=== PATIENT | male | born 2000 | race Caucasian/White ===

== ENCOUNTER 2022-01-03 11:19 | Emergency (ER) | payer OTHER, BC ==
[~2022-01-03] VITALS: Ht 185.4 cm; Wt 72.5 kg
[2022-01-03] MEDS: fentaNYL INJ 100 MCG/2 ML AMP ONE (11:37)
[2022-01-03 11:43] LABS: HEMATOCRIT 40 % (40-54); MEAN CORPUSCULAR HEMOGLOBIN 32 pg (25-34); MEAN CORPUSCULAR HGB CONC 35 g/dL (32-36); MEAN CORPUSCULAR VOLUME 91 fL (80-99); MEAN PLATELET VOLUME 9.8 fL (9.0-12.2); PLATELET COUNT 319 10^3/uL (130-400)
[2022-01-03] MEDS ORDERED: fentaNYL INJ 100 MCG/2 ML AMP IVP ONE (11:45)
[2022-01-03] MEDS ORDERED: CATHETER FLUSH 10 ML SYR IV PRN (11:45)
[2022-01-03] MEDS ORDERED: HOLD METFORMIN - RECEIVED CONTRAST 20 ML VIAL IV SCH (11:45)
[2022-01-03] MEDS ORDERED: IOHEXOL 350 MG/ML 100 ML (OMNIPAQUE 350) VIAL IV ONE (11:45)
[2022-01-03] MEDS ORDERED: NS 100 ML (IVPB) BAG IV ONE (11:45)
[2022-01-03] MEDS ORDERED: NS IV 1000 ML 1,000 ML IV SCH (11:45)
[2022-01-03 11:48] LABS: ALBUMIN 4.6 GM/DL (3.2-4.5); CHLORIDE 103 MMOL/L (98-107); POTASSIUM 3.4 MMOL/L (3.6-5.0); SODIUM 140 MMOL/L (135-145)
--- NOTE | 2022-01-03 11:48 | ED Trauma-Vehiclar ---
General Stated Complaint: HEAD INJURY Time Seen by MD: 11:24 Source: patient, EMS Exam Limitations: clinical condition (Concussed) History of Present Illness Date Seen by Provider: Jan 03, 2022 Time Seen by Provider: 11:14 Initial Comments Patient to the ER by EMS from home where he was working cattle on a horse and his horse tripped. It pitched him forward over the horses head and then the horse landed on top of him. He does not remember any of the event. He was unconscious for about 3 to 4 minutes per bystanders. No significant medical history. Does not take any medicines. EMS remarks that he was a little lethargic/somnolent on the way in and difficult historian however it was improving. He is not complaining of pain anywhere except for his right shoulder and his head. EMS found he had a bloody nose and contusions on his face and a few abrasions on his hands and right hip. An IV was started. No pain meds were given Allergies and Home Medications Allergies Coded Allergies: No Known Drug Allergies (Unverified , 01/03/22) Patient Home Medication List Home Medication List Reviewed: Yes Amoxicillin/Potassium Clav (Amox Tr-K Clv 875-125 mg Tab) 875 Mg-125 Mg Tablet, 1 EACH PO BID Prescribed by: OLLIE LINARES on 01/03/22 1343 Hydrocodone/Acetaminophen (Hydrocodone-Acetamin 5-325 mg) 5 Mg-325 Mg Tablet, 1 TAB PO Q6H PRN for PAIN-MODERATE (5-7) Prescribed by: OLLIE LINARES on 01/03/22 1344 Ondansetron (Ondansetron Odt) 4 Mg Tab.rapdis, 4-8 MG PO Q6H PRN for NAUSEA/VOMITING Prescribed by: OLLIE LINARES on 01/03/22 1343 Review of Systems Review of Systems Constitutional: No chills, No diaphoresis Eyes: Denies Blindness, Denies Blurred Vision Ears: Denies Dizziness, Denies Pain Nose: See HPI, Bloody Discharge; No Clear Discharge Mouth: No Bloody Discharge, No Clear Discharge Throat: No Aphonia, No Discharge, No Hoarse, No Neck Stiffness Respiratory: No cough, No short of breath Cardiovascular: Denies Edema, Denies Syncope Gastrointestinal: No abdominal pain, No constipation, No diarrhea Musculoskeletal: No back pain; joint pain (right shoulder) All Other Systems Reviewed Negative Unless Noted: Yes Past Siygskd-Zuninr-Zhuvby Hx Patient Social History Tobacco Use?: No Use of E-Cig and/or Vaping dev: No Substance use?: No Physical Exam Vital Signs Vital Signs - First Documented Capillary Refill : Height, Weight, BMI Height: '" Weight: lbs. oz. kg; BMI Method: General Appearance: WD/WN, mild distress HEENT: PERRL/EOMI (4 mm reactive bilateral with raccoon sign on the right I), normal ENT inspection, TMs normal (No hemotympanum. Negative for suero sign), pharynx normal (No chipped or broken teeth noted) Neck: full range of motion, supple, normal inspection Cardiovascular: normal peripheral pulses, regular rate, rhythm Respiratory: lungs clear, normal breath sounds, no respiratory distress, no accessory muscle use Peripheral Pulses: 2+ Radial Pulses (R), 2+ Radial Pulses (L) Gastrointestinal: normal bowel sounds, non tender, soft, no organomegaly Pelvic: other (No rocking of the pelvis, pain to palpation. There is a superficial abrasion on the right ASIS) Back: normal inspection, no vertebral tenderness Extremities: non-tender, normal inspection, normal capillary refill, other (Tenderness to palpation over the right anterior shoulder/AC joint. No deformity or crepitus.) Neurologic/Psychiatric: alert, normal mood/affect, oriented x 3 (Oriented to person place and time but not situation) Skin: other (Abrasion on backs of both hands, superficial, superficial abrasion on the right ASIS, contusions and abrasions of the face/forehead bilaterally.) Pat Coma Score Best Eye Response: (4) Open Spontaneously Best Verbal Response: (5) Oriented Best Motor Response: (6) Obeys Commands Pat Total: 15 Progress/Results/Core Measures Results/Orders Lab Results Laboratory Tests Test 01/03/22 11:26 01/03/22 12:44 Range/Units White Blood Count 7.0 4.3-11.0 10^3/uL Red Blood Count 4.43 4.30-5.52 10^6/uL Hemoglobin 14.0 13.3-17.7 g/dL Hematocrit 40 40-54 % Mean Corpuscular Volume 91 80-99 fL Mean Corpuscular Hemoglobin 32 25-34 pg Mean Corpuscular Hemoglobin Concent 35 32-36 g/dL Red Cell Distribution Width 12.0 10.0-14.5 % Platelet Count 319 130-400 10^3/uL Mean Platelet Volume 9.8 9.0-12.2 fL Sodium Level 140 135-145 MMOL/L Potassium Level 3.4 L 3.6-5.0 MMOL/L Chloride Level 103 98-107 MMOL/L Carbon Dioxide Level 22 21-32 MMOL/L Anion Gap 15 H 5-14 MMOL/L Blood Urea Nitrogen 17 7-18 MG/DL Creatinine 1.05 0.60-1.30 MG/DL Estimat Glomerular Filtration Rate 104 BUN/Creatinine Ratio 16 Glucose Level 179 H 70-105 MG/DL Calcium Level 9.4 8.5-10.1 MG/DL Total Bilirubin 0.6 0.1-1.0 MG/DL Direct Bilirubin 0.2 0.0-0.3 MG/DL Indirect Bilirubin 0.4 MG/DL Aspartate Amino Transf (AST/SGOT) 28 5-34 U/L Alanine Aminotransferase (ALT/SGPT) 25 0-55 U/L Alkaline Phosphatase 72 40-136 U/L Total Protein 7.5 6.4-8.2 GM/DL Albumin 4.6 H 3.2-4.5 GM/DL Serum Alcohol < 10 <10 MG/DL Urine Color YELLOW Urine Clarity CLEAR Urine pH 5.5 5-9 Urine Specific [place] 1.015 L 1.016-1.022 Urine Protein TRACE H NEGATIVE Urine Glucose (UA) NEGATIVE NEGATIVE Urine Ketones NEGATIVE NEGATIVE Urine Nitrite NEGATIVE NEGATIVE Urine Bilirubin NEGATIVE NEGATIVE Urine Urobilinogen 0.2 < = 1.0 MG/DL Urine Leukocyte Esterase NEGATIVE NEGATIVE Urine RBC (Auto) 1+ H NEGATIVE Urine RBC 2-5 H /HPF Urine WBC NONE /HPF Urine Crystals NONE /LPF Urine Bacteria NEGATIVE /HPF Urine Casts NONE /LPF Urine Mucus NEGATIVE /LPF Urine Culture Indicated NO My Orders Orders - OLLIE LINARES Cbc No Diff (01/03/22 11:35) Basic Metabolic Panel (01/03/22 11:35) Liver Panel (01/03/22 11:35) Alcohol (01/03/22 11:35) Ua Culture If Indicated (01/03/22 11:35) Type And Screen (01/03/22 11:35) Chest 1 View, Ap/Pa Only (01/03/22 11:35) Pelvis 1 To 2 Views (01/03/22 11:35) Ekg Tracing (01/03/22 11:35) End Tidal Co2 (01/03/22 11:35) Monitor-Rhythm Ecg Trace Only (01/03/22 11:35) Ed Iv/Invasive Line Start (01/03/22 11:35) Ct Head/Face/Cervical Wo (01/03/22 11:35) Shoulder, Right, 3 Views (01/03/22 11:35) Ed Iv/Invasive Line Start (01/03/22 11:35) Ns Iv 1000 Ml (Sodium Chloride 0.9%) (01/03/22 11:45) Fentanyl Inj (Sublimaze Injection) (01/03/22 11:45) Fentanyl Inj (Sublimaze Injection) (01/03/22 11:35) Ct Chest/Abdomen/Pelvis W (01/03/22 11:38) Iohexol Injection (Omnipaque 350 Mg/Ml 1 (01/03/22 11:45) Received Contrast (Hold Metformin- Contr (01/03/22 11:45) Ns (Ivpb) (Sodium Chloride 0.9% Ivpb Bag (01/03/22 11:45) Sodium Chloride Flush (Catheter Flush Sy (01/03/22 11:45) Ondansetron Injection (Zofran Injectio (01/03/22 12:30) Ketorolac Injection (Toradol Injection) (01/03/22 14:00) Medications Given in ED Current Medications Medications Dose Ordered Sig/Petros Route Start Time Stop Time Status Last Admin Dose Admin Fentanyl Citrate 50 mcg ONCE ONCE IVP 01/03/22 11:45 01/03/22 11:46 DC 01/03/22 11:37 50 MCG Iohexol 80 ml ONCE ONCE IV 01/03/22 11:45 01/03/22 12:05 DC 01/03/22 11:56 80 ML Ondansetron HCl 8 mg ONCE ONCE IVP 01/03/22 12:30 01/03/22 12:31 DC 01/03/22 12:31 8 MG Sodium Chloride 10 ml NEEDED PRN IV 01/03/22 11:45 01/03/22 11:56 10 ML Sodium Chloride 100 ml ONCE ONCE IV 01/03/22 11:45 01/03/22 12:05 DC 01/03/22 11:56 80 ML Vital Signs/I&O 01/03/22 01/03/22 11:24 11:24 Temp 36.2 36.2 Pulse 68 68 Resp 18 18 B/P (MAP) 125/73 (90) 125/73 (90) Pulse Ox 99 99 O2 Delivery Room Air Room Air Progress Progress Note #1: Time: 11:47 Progress Note The patient is quite concussed and did not endorse any pain in his shoulder until after our initial survey. Suspect that he may not be feeling all of the pain so we will get a toxicology screen and CT his head, neck, face, chest, abdomen and pelvis. X-ray of the right shoulder, pelvis and chest. Before the patient left the room his chest x-ray and pelvic x-ray were reviewed and no acute pathology was noted. FAST exam at the bedside was normal. He appeared uncomfortable so 50 mcg of fentanyl IV were given. Vital signs and end-tidal CO2 were normal. Progress Note #2: Time: 13:22 Progress Note Family is visiting with him now. We did speak to his mother with his permission and gave her an update. Discussed the case with Dr. Perdomo, trauma surgeon on- call who agrees with allowing him to go home and follow-up as necessary. Pain management, concussion management and return precautions were gone over. Initial ECG Impression Date: Jan 03, 2022 Initial ECG Impression Time: 12:24 Initial ECG Rate: 74 Initial ECG Rhythm: Normal Sinus Initial ECG Intervals: Normal Initial ECG Impression: Normal Initial ECG Comparisson: No Previous ECG Available Comment Normal sinus rhythm without clinically relevant ST elevation or depression Diagnostic Imaging Diagonstic Imaging: CT Plain Films/CT/US/NM/MRI: facial bones, c-spine, head Comments [facility], [place] NAME: MARYSOL REDD [facility] REC#: [id number] PT STATUS: REG ER : 2000 PHYSICIAN: OLLIE LINARES MD ADMIT DATE: 01/03/22/ER Draft Date of Exam:01/03/22 CT HEAD/FACE/CERVICAL WO CLINICAL INDICATION: Patient was riding a horse and both horse and patient fell. Patient loss of consciousness for 3 to 4 minutes. Exam: Axial Head CT without IV contrast with sagittal and coronal reformations. Axial Maxillofacial CT scan without IV contrast with sagittal and coronal reformations. Axial CT scan of the cervical spine with sagittal and coronal reformations. Auto Exposure Controls were utilized during the CT exam to meet ALARA standards for radiation dose reduction. Comparison: Findings: Head and maxillofacial CT: There is no evidence of acute cerebral infarct, intracranial hemorrhage, or gross mass effect. The brain parenchymal volume appears appropriate for patient's age. There is normal morataya-white matter distinction. There is no significant midline shift or herniation. There is no evidence of hydrocephalus. The basal cisterns are unremarkable. There is a very minimal air in the right cavernous sinus region. Otherwise there is no pneumocephalus. There is a nondisplaced fracture involving the inferior aspect of the anterior and lateral hartman of the left maxillary sinus. This fracture extends through the region of the left nasal lacrimal duct. There is a hairline fracture involving the roof of the right orbit which extends along the right frontal skull base region and extending up along the right frontal bone. There is a fracture of the medial wall of the right orbit/lamina papyracea extending into the right ethmoid sinus region at the level of the mid orbit. There is also a fracture of the medial wall of the right orbit anteriorly extending along the right nasal bridge and right nasal bone region. There is no retrobulbar hematoma. There is air within the superior intraorbital extraconal region of the right orbit near the area of fracture. There is no herniation of intraorbital fat. There is large amounts of mucosal thickening and blood in the left maxillary sinus. There is moderate amounts of secretions and mucosal thickening with consolidation involving the frontal sinus, ethmoid sinus. There is small amount of secretions mucosal thickening involving the sphenoid sinus right maxillary sinus. There is extracranial soft tissue swelling in the bilateral malar region and adjacent to the nasal bone and bilateral periorbital regions and forehead region. Globes are intact. Temporal bone structures are unremarkable. Mastoid air cells are clear. Cervical spine: There is no acute cervical spine fracture or dislocation. There is reversal of cervical lordosis which is nonspecific and may be related to patient positioning or muscle spasms. The vertebral body heights and intervertebral disk heights are maintained. There is no significant neck soft tissue abnormality. Visualized upper lung peters are clear. Impression: 1: There is no evidence of intracranial hemorrhage. There is no acute intracranial process. There is minimal air in the right cavernous sinus region, otherwise there is no pneumocephalus. 2: There are subtle nondisplaced fractures involving the roof of the right orbit which extends along the right frontal skull base and up along the right frontal skull region. Globes are intact. There is no retrobulbar hematoma. There is extraconal right intraorbital air near the fracture region. 3: There is a fracture involving the medial wall of the right orbit anteriorly which extends to the anterior right ethmoid sinus and along the right nasal bone. There is also a fracture of the medial wall of the right maxillary sinus/lamina papyracea at the mid right orbit level. 4: There is a nondisplaced fracture involving the inferior aspect of the anterior and lateral wall of the left maxillary sinus. 5: There is no acute cervical spine fracture or dislocation. 6: There is reversal of cervical lordosis which is nonspecific and may be related to patient positioning or muscle spasms. Results of this report discussed with Dr. Ollie Linares via the telephone on 01/03/2022 at 1236 hours Dictated on workstation # [id number] Dict: 01/03/22 1216 Trans: 01/03/[address] [facility] [id number] Interpreted by: YADI LUCAS MD Electronically signed by: Reviewed: Reviewed by Ak Diagonstic Imaging: CT Plain Films/CT/US/NM/MRI: chest Comments [facility], [place] NAME: MARYSOL REDD [facility] REC#: [id number] PT STATUS: REG ER : 2000 PHYSICIAN: OLLIE LINARES MD ADMIT DATE: 01/03/22/ER Draft Date of Exam:01/03/22 CT CHEST/ABDOMEN/PELVIS W PROCEDURE: CT chest, abdomen, and pelvis with contrast. TECHNIQUE: Multiple contiguous axial images were obtained through the chest, abdomen, and pelvis after the administration of intravenous contrast. Auto Exposure Controls were utilized during the CT exam to meet ALARA standards for radiation dose reduction. INDICATION: Trauma, fall from horse. No prior studies available for comparison. CT CHEST: No definite mediastinal hematoma or great vessel injury is seen. There is some residual thymic tissue in the anterior mediastinum. No pericardial fluid or evidence of hemo-thorax is detected. No pulmonary contusion or pneumothorax is identified. There appears to be a nondisplaced fracture involving the right anterior 5th rib. No other rib fractures are seen. Sternum appears intact. IMPRESSION: Right anterior 5th rib fracture. No other abnormality in the chest is identified. CT ABDOMEN AND PELVIS: No focal liver or splenic laceration is seen. Gallbladder is unremarkable. Pancreas, adrenal glands and kidneys are unremarkable. Aorta is nonaneurysmal. There is no free fluid or evidence of hemoperitoneum. The bowel loops are normal caliber. Bladder is unremarkable. The bony structures are nonacute. IMPRESSION: No evidence of abdominal or pelvic visceral injury. Dictated on workstation # [id number] Dict: 01/03/22 1217 Trans: 01/03/22 1225 [id number] [id number] Interpreted by: SUDEEP PEDROZA MD Electronically signed by: Reviewed: Reviewed by Ak Diagonstic Imaging: CT Plain Films/CT/US/NM/MRI: abdomen, pelvis Comments [facility] [place] NAME: MARYSOL REDD [facility] REC#: [id number] PT STATUS: REG ER : 2000 PHYSICIAN: OLLIE LINARES MD ADMIT DATE: 01/03/22/ER Draft Date of Exam:01/03/22 CT CHEST/ABDOMEN/PELVIS W PROCEDURE: CT chest, abdomen, and pelvis with contrast. TECHNIQUE: Multiple contiguous axial images were obtained through the chest, abdomen, and pelvis after the administration of intravenous contrast. Auto Exposure Controls were utilized during the CT exam to meet ALARA standards for radiation dose reduction. INDICATION: Trauma, fall from horse. No prior studies available for comparison. CT CHEST: No definite mediastinal hematoma or great vessel injury is seen. There is some residual thymic tissue in the anterior mediastinum. No pericardial fluid or evidence of hemo-thorax is detected. No pulmonary contusion or pneumothorax is identified. There appears to be a nondisplaced fracture involving the right anterior 5th rib. No other rib fractures are seen. Sternum appears intact. IMPRESSION: Right anterior 5th rib fracture. No other abnormality in the chest is identified. CT ABDOMEN AND PELVIS: No focal liver or splenic laceration is seen. Gallbladder is unremarkable. Pancreas, adrenal glands and kidneys are unremarkable. Aorta is nonaneurysmal. There is no free fluid or evidence of hemoperitoneum. The bowel loops are normal caliber. Bladder is unremarkable. The bony structures are nonacute. IMPRESSION: No evidence of abdominal or pelvic visceral injury. Dictated on workstation # [id number] Dict: 01/03/22 1217 Trans: 01/03/22 1225 [facility] [id number] Interpreted by: SUDEEP PEDROZA MD Electronically signed by: Reviewed: Reviewed by Ak Diagonstic Imaging: Xray Plain Films/CT/US/NM/MRI: chest Comments [facility] [place] [place] [facility] [id number] PT STATUS: REG ER : 2000 PHYSICIAN: OLLIE LINARES MD ADMIT DATE: 01/03/22/ER Draft Date of Exam:01/03/22 CHEST 1 VIEW, AP/PA ONLY INDICATION: Trauma. FINDINGS: The heart size, mediastinal configuration, and pulmonary vascularity are within normal limits. There is no pleural effusion, pneumothorax, or pneumonia. The osseous structures are unremarkable. IMPRESSION: No acute cardiopulmonary abnormality. Dictated on workstation # [id number] Dict: 01/03/22 1156 Trans: 01/03/[address] [facility] [id number] Interpreted by: SCHUYLER MALIK MD Electronically signed by: Reviewed: Reviewed by Ak Diagonstic Imaging: Xray Plain Films/CT/US/NM/MRI: pelvis Comments [facility] [place] [place] NAME: IVANI[facility]RE[facility] REC#: [id number] PT STATUS: REG ER : 2000 PHYSICIAN: OLLIE LINARES MD ADMIT DATE: 01/03/22/ER Draft Date of Exam:01/03/22 PELVIS 1 TO 2 VIEWS HISTORY: Trauma, fall from horse. TECHNIQUE: Frontal view of the pelvis. COMPARISON: None. FINDINGS: The pelvis is slightly rotated to the left. No acute fracture is seen. Alignment appears normal. The femoral heads are well seated in the acetabula bilaterally. Bilateral sacroiliac joints are patent. The pubic symphysis appears normal. The proximal right femur is incompletely included on the exam. IMPRESSION: 1. No acute osseous abnormality is seen on this single view of the pelvis. Dictated on workstation # [id number] Dict: 01/03/22 1241 Trans: 01/03/22 1247 [id number] Interpreted by: ARSALAN HARGROVE MD Electronically signed by: Reviewed: Reviewed by Me Diagonstic Imaging: Xray Plain Films/CT/US/NM/MRI: other (Right shoulder) Comments [facility], [place] NAME: MARYSOL [facility]D [facility] REC#: [id number] PT STATUS: REG ER : 2000 PHYSICIAN: OLLIE LINARES MD ADMIT DATE: 01/03/22/ER Draft Date of Exam:01/03/22 SHOULDER, RIGHT, 3 VIEWS INDICATION: Right shoulder pain after a fall. Internal and external rotation views of the right shoulder are obtained with transscapular view. FINDINGS: No acute fracture or dislocation is identified. No abnormal lytic or sclerotic focus is seen, and there is no radiopaque foreign body. IMPRESSION: No acute abnormality. Dictated on workstation # [id number] Dict: 01/03/22 1242 Trans: 01/03/22 1248 [id number] Interpreted by: MIRANDA REARDON MD Electronically signed by: Reviewed: Reviewed by Me Departure Impression Primary Impression: Asymptomatic microscopic hematuria Additional Impressions: Kidney contusion Qualified Codes: S37.019A - Minor contusion of unspecified kidney, initial encounter Animal-rider injured by fall from or being thrown from horse in noncollision accident, initial encounter Right rib fracture Qualified Codes: S22.31XA - Fracture of one rib, right side, initial encounter for closed fracture Orbital roof fracture Qualified Codes: S02.121A - Fracture of orbital roof, right side, initial en counter for closed fracture Maxillary fracture, left side, initial encounter for closed fracture Nasal bone fx-closed Qualified Codes: S02.2XXA - Fracture of nasal bones, initial encounter for closed fracture Brain concussion Qualified Codes: S06.0X1A - Concussion with loss of consciousness of 30 minutes or less, initial encounter Abrasion Disposition: 01 HOME, SELF-CARE Condition: Stable Departure-Patient Inst. Decision time for Depature: 13:24 Referrals: BRYN PERDOMO DO Patient Instructions: Blood in Urine (Hematuria), Adult ED, Facial Fracture (DC), Rib Fracture or Bruised Rib ED Add. Discharge Instructions: Drink plenty of fluids. Get lots of sleep. Ice 20 minutes on every 2 hours as needed for your face and right rib to reduce pain and swelling. Tylenol 1000 mg every 8 hours as needed for pain. Ibuprofen 800 mg every 8 hours needed for pain. Incentive spirometer use it 10 times every hour while awake for the first week to prevent pneumonia. Augmentin 1 tablet twice a day for 10 days to prevent sinus infection from facial fractures. Ondansetron 1 or 2 tablets every 6 hours as needed for nausea and/or vomiting. Hydrocodone 1 tablet every 6 hours as needed for severe pain keeping you from being functional. It will cause drowsiness and constipation. Use MiraLAX or Colace to stay regular. You have a concussion which will result in symptoms such as headache, nausea, sleepiness, irritability, difficulty concentrating, difficulty with balance. If you are having the symptoms it means that you have overdone it and you need to take a nap and rest your brain. It is okay to use a tablet of Benadryl to help you sleep if you need to. Follow-up with the trauma surgeon, Dr. Perdomo as necessary to manage symptoms, pain, vomiting etc. Plan to repeat a urinalysis for the small amount of blood in the urine in 2 to 4 weeks. This can be done through Dr. Perdomo's office or your primary care doctor. You may start returning to work after 5 days of low stimuli, quiet, dark environment. If you are in a merlene environment wear a mask or bandanna to keep the dust down out of your nose. If you are having any symptoms of concussion then you need to go home and get sleep. When you are 48 hours symptom-free from concussion and back to full working without any medications to mask your symptoms then you are considered concussion free. Until that time avoid further risk of head injuries. No climbing on ladders, scaffolding, trees. Wear your seatbelt. Scripts Amoxicillin/Potassium Clav (Amox Tr-K Clv 875-125 mg Tab) 875 Mg-125 Mg Tablet 1 EACH PO BID for 14 Days, #28 TAB 0 Refills Prov: OLLIE LINARES 01/03/22 Ondansetron (Ondansetron Odt) 4 Mg Tab.rapdis 4-8 MG PO Q6H PRN for NAUSEA/VOMITING, #15 TAB 0 Refills Prov: OLLIE LINARES 01/03/22 Hydrocodone/Acetaminophen (Hydrocodone-Acetamin 5-325 mg) 5 Mg-325 Mg Tablet 1 TAB PO Q6H PRN for PAIN-MODERATE (5-7), #15 TAB 0 Refills Prov: OLLIE LINARES 01/03/22 Work/School Note: Work Release Form Date Seen in the Emergency Department: Jan 03, 2022 Return to Work: Jan 08, 2022 Restrictions: No Restrictions Other Restrictions Listed Below: Wear a mask for 2 weeks. If concussion symptoms then go home and get sleep Copy Copies To 1: BRYN PERDOMO DO OLLIE LINARES Jan 03, 2022 11:48
[2022-01-03 11:49] LABS: CALCIUM 9.4 MG/DL (8.5-10.1)
[2022-01-03 11:50] LABS: GLUCOSE 179 MG/DL (70-105); TOTAL PROTEIN 7.5 GM/DL (6.4-8.2)
[2022-01-03 11:51] LABS: CARBON DIOXIDE 22 MMOL/L (21-32)
[2022-01-03 11:52] LABS: BILIRUBIN,TOTAL 0.6 MG/DL (0.1-1.0)
[2022-01-03 11:54] LABS: ALKALINE PHOSPHATASE 72 U/L (40-136); CREATININE SERUM 1.05 MG/DL (0.60-1.30); GFR ESTIMATED 104
[2022-01-03 11:55] LABS: BUN/CREATININE RATIO 16
[2022-01-03 11:56] LABS: BILIRUBIN,DIRECT 0.2 MG/DL (0.0-0.3); BILIRUBIN,INDIRECT 0.4 MG/DL
[2022-01-03 11:57] LABS: ALANINE AMINOTRANSFERASE 25 U/L (0-55)
--- NOTE | 2022-01-03 12:00 | Diagnostic Imaging Report ---
INDICATION: Trauma. FINDINGS: The heart size, mediastinal configuration, and pulmonary vascularity are within normal limits. There is no pleural effusion, pneumothorax, or pneumonia. The osseous structures are unremarkable. IMPRESSION: No acute cardiopulmonary abnormality. Dictated by: Dictated on workstation # [id number]
--- NOTE | 2022-01-03 12:26 | Diagnostic Imaging Report ---
PROCEDURE: CT chest, abdomen, and pelvis with contrast. TECHNIQUE: Multiple contiguous axial images were obtained through the chest, abdomen, and pelvis after the administration of intravenous contrast. Auto Exposure Controls were utilized during the CT exam to meet ALARA standards for radiation dose reduction. INDICATION: Trauma, fall from horse. No prior studies available for comparison. CT CHEST: No definite mediastinal hematoma or great vessel injury is seen. There is some residual thymic tissue in the anterior mediastinum. No pericardial fluid or evidence of hemo-thorax is detected. No pulmonary contusion or pneumothorax is identified. There appears to be a nondisplaced fracture involving the right anterior 5th rib. No other rib fractures are seen. Sternum appears intact. IMPRESSION: Right anterior 5th rib fracture. No other abnormality in the chest is identified. CT ABDOMEN AND PELVIS: No focal liver or splenic laceration is seen. Gallbladder is unremarkable. Pancreas, adrenal glands and kidneys are unremarkable. Aorta is nonaneurysmal. There is no free fluid or evidence of hemoperitoneum. The bowel loops are normal caliber. Bladder is unremarkable. The bony structures are nonacute. IMPRESSION: No evidence of abdominal or pelvic visceral injury. Dictated by: Dictated on workstation # [id number]
[2022-01-03] MEDS ORDERED: ONDANSETRON 4 MG/2 ML (SDV) Z0FRAN IVP ONE (12:30)
--- NOTE | 2022-01-03 12:47 | Diagnostic Imaging Report ---
CLINICAL INDICATION: Patient was riding a horse and both horse and patient fell. Patient loss of consciousness for 3 to 4 minutes. Exam: Axial Head CT without IV contrast with sagittal and coronal reformations. Axial Maxillofacial CT scan without IV contrast with sagittal and coronal reformations. Axial CT scan of the cervical spine with sagittal and coronal reformations. Auto Exposure Controls were utilized during the CT exam to meet ALARA standards for radiation dose reduction. Comparison: Findings: Head and maxillofacial CT: There is no evidence of acute cerebral infarct, intracranial hemorrhage, or gross mass effect. The brain parenchymal volume appears appropriate for patient's age. There is normal morataya-white matter distinction. There is no significant midline shift or herniation. There is no evidence of hydrocephalus. The basal cisterns are unremarkable. There is a very minimal air in the right cavernous sinus region. Otherwise there is no pneumocephalus. There is a nondisplaced fracture involving the inferior aspect of the anterior and lateral hartman of the left maxillary sinus. This fracture extends through the region of the left nasal lacrimal duct. There is a hairline fracture involving the roof of the right orbit which extends along the right frontal skull base region and extending up along the right frontal bone. There is a fracture of the medial wall of the right orbit/lamina papyracea extending into the right ethmoid sinus region at the level of the mid orbit. There is also a fracture of the medial wall of the right orbit anteriorly extending along the right nasal bridge and right nasal bone region. There is no retrobulbar hematoma. There is air within the superior intraorbital extraconal region of the right orbit near the area of fracture. There is no herniation of intraorbital fat. There is large amounts of mucosal thickening and blood in the left maxillary sinus. There is moderate amounts of secretions and mucosal thickening with consolidation involving the frontal sinus, ethmoid sinus. There is small amount of secretions mucosal thickening involving the sphenoid sinus right maxillary sinus. There is extracranial soft tissue swelling in the bilateral malar region and adjacent to the nasal bone and bilateral periorbital regions and forehead region. Globes are intact. Temporal bone structures are unremarkable. Mastoid air cells are clear. Cervical spine: There is no acute cervical spine fracture or dislocation. There is reversal of cervical lordosis which is nonspecific and may be related to patient positioning or muscle spasms. The vertebral body heights and intervertebral disk heights are maintained. There is no significant neck soft tissue abnormality. Visualized upper lung peters are clear. Impression: 1: There is no evidence of intracranial hemorrhage. There is no acute intracranial process. There is minimal air in the right cavernous sinus region, otherwise there is no pneumocephalus. 2: There are subtle nondisplaced fractures involving the roof of the right orbit which extends along the right frontal skull base and up along the right frontal skull region. Globes are intact. There is no retrobulbar hematoma. There is extraconal right intraorbital air near the fracture region. 3: There is a fracture involving the medial wall of the right orbit anteriorly which extends to the anterior right ethmoid sinus and along the right nasal bone. There is also a fracture of the medial wall of the right maxillary sinus/lamina papyracea at the mid right orbit level. 4: There is a nondisplaced fracture involving the inferior aspect of the anterior and lateral wall of the left maxillary sinus. 5: There is no acute cervical spine fracture or dislocation. 6: There is reversal of cervical lordosis which is nonspecific and may be related to patient positioning or muscle spasms. Results of this report discussed with Dr. Ollie Linares via the telephone on 01/03/2022 at 1236 hours Dictated by: Dictated on workstation # [id number]
--- NOTE | 2022-01-03 12:47 | Diagnostic Imaging Report ---
HISTORY: Trauma, fall from horse. TECHNIQUE: Frontal view of the pelvis. COMPARISON: None. FINDINGS: The pelvis is slightly rotated to the left. No acute fracture is seen. Alignment appears normal. The femoral heads are well seated in the acetabula bilaterally. Bilateral sacroiliac joints are patent. The pubic symphysis appears normal. The proximal right femur is incompletely included on the exam. IMPRESSION: 1. No acute osseous abnormality is seen on this single view of the pelvis. Dictated by: Dictated on workstation # [id number]
--- NOTE | 2022-01-03 12:48 | Diagnostic Imaging Report ---
INDICATION: Right shoulder pain after a fall. Internal and external rotation views of the right shoulder are obtained with transscapular view. FINDINGS: No acute fracture or dislocation is identified. No abnormal lytic or sclerotic focus is seen, and there is no radiopaque foreign body. IMPRESSION: No acute abnormality. Dictated by: Dictated on workstation # [id number]
[2022-01-03 12:53] LABS: BILIRUBIN,URINE NEGATIVE (NEGATIVE); CLARITY,URINE CLEAR; COLOR,URINE YELLOW; GLUCOSE, URINE (UA) NEGATIVE (NEGATIVE); KETONES,URINE NEGATIVE (NEGATIVE); LEUKOCYTE ESTERASE ,URINE NEGATIVE (NEGATIVE); NITRITE,URINE NEGATIVE (NEGATIVE); PH,URINE 5.5 (5-9); PROTEIN,URINE TRACE (NEGATIVE)
[2022-01-03 13:11] LABS: BACTERIA,URINE NEGATIVE /HPF
[2022-01-03] MEDS ORDERED: ONDA4TAB11 PO (13:43)
[2022-01-03] MEDS ORDERED: AMOX1TAB12 PO (13:43)
[2022-01-03] MEDS ORDERED: ACHD5005 PO (13:43)
[2022-01-03] MEDS ORDERED: KETOROLAC 30 MG/ML VIAL IVP ONE (14:00)
[2022-01-03 14:27] VITALS: BP 116/46
== END 2022-01-03 14:27 | disposition home or self-care (01) ==
LOC: ER 11:24
DX: S06.0X1A Concussion with loss of consciousness of 30 minutes or less, initial encounter (principal); S02.2XXA Fracture of nasal bones, initial encounter for closed fracture; S22.31XA Fracture of one rib, right side, initial encounter for closed fracture; S02.831A Fracture of medial orbital wall, right side, initial encounter for closed fracture; S02.121A Fracture of orbital roof, right side, initial encounter for closed fracture; S02.40CA Maxillary fracture, right side, initial encounter for closed fracture; S02.40DA Maxillary fracture, left side, initial encounter for closed fracture; S37.019A Minor contusion of unspecified kidney, initial encounter; S00.83XA Contusion of other part of head, initial encounter; S60.512A Abrasion of left hand, initial encounter; S60.511A Abrasion of right hand, initial encounter; S30.810A Abrasion of lower back and pelvis, initial encounter; M25.511 Pain in right shoulder; R31.21 Asymptomatic microscopic hematuria; V80.010A Animal-rider injured by fall from or being thrown from horse in noncollision accident, initial encounter; Y92.009 Unspecified place in unspecified non-institutional (private) residence as the place of occurrence of the external cause
CPT/HCPCS: 70450; 70486; 71045; 71260; 72125; 72170; 73030; 74177; 80048; 80076; 81000; 85027; 86850; 86900; 86901; 93005; 93041; 94664; 99284; G0480; 36415; 80320